=== PATIENT | male | born 2000 ===

== ENCOUNTER 2024-12-19 15:15 | Outpatient (AMB) | payer OTHER, SELFPAY ==
--- NOTE | 2024-12-19 15:16 | MHC.OFFVIS ---
Vital Signs 12/19/24 15:19 Height 5 ft 4.96 in Weight 146 lb 4 oz BMI 24.4 BP 102/68 Blood Pressure Location Rt brachial Position Sitting Pulse 75 Pulse Source Pulse Oximeter Pulse Oximetry (%) 97 Oxygen Delivery Method Room Air Intake Visit Reasons: severe asthma Allergies coconut Allergy (Mild, Verified 12/19/24 15:26) Hives Seasonal Allergies Allergy (Mild, Verified 12/19/24 15:26) Itching sertraline (From Zoloft) Allergy (Mild, Verified 12/19/24 15:26) Hives walnut Allergy (Mild, Verified 12/19/24 15:26) Unknown HPI HPI severe asthma: Details: Lonnie is a pleasant 24 year old male, never smoker, with underlying severe asthma, allergic rhinitis, eczema, mood disorder, PTSD and anxiety. 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 Today he is accompanied by his mother. He reports respiratory issues since he was an infant. He has been moderately controlled on Fasenra for the last three weeks receiving injections q8 weeks. Previous to Fasenra requiring multiple courses of prednisone. He receives Fasenra from [facility]. He does report ongoing cough occasionally productive with clear sputum otherwise dry. Denies wheezing, chest tightness or dyspnea. He also reports discontinuing all respiratory medications, previously using Advair 250mcg, albuterol MDI/neb. He endorses seasonal allergies using antihistamines PRN. Denies recent allergy testing. Prior CXR 2022 unremarkable. He reports mother with asthma, otherwise denies pertinent family history. [facility] Social History (Updated 12/19/24 @ 15:27 by Maria Victoria Alston [facility]) Patient Tobacco Use Status: Never used Tobacco Review of Systems Const Denies chills, Denies excessive sweating, Denies fever(s), Denies headache(s) and Denies night sweats Eyes Denies dry eyes, Denies irritation and Denies itchy eyes ENT Reports Normal hearing present, Denies headache(s), Denies nasal discharge, Denies post nasal drip and Denies sore throat Card Denies chest pain, Denies chest pain at rest, Denies chest pain with activity, Denies claudication, Denies leg edema, Denies dyspnea, Denies dyspnea on exertion, Denies orthopnea and Denies paroxysmal nocturnal dyspnea Resp Denies change in phlegm color, Denies chest congestion, Reports cough, Denies hemoptysis, Denies excessive phlegm production, Denies pain on inspiration, Denies pain with cough, Denies dyspnea, Denies dyspnea on exertion, Denies stridor and Denies wheezing Musc Denies myalgias Neuro Reports Normal hearing present and Denies headache(s) Endo Denies excessive sweating Gamaliel/Lymph Denies lymphadenopathy Aller/Immun Denies itchy eyes and Denies wheezing Physical Exam Vital Signs: Last Vital Signs Pulse 75 12/19/24 15:19 BP 102/68 12/19/24 15:19 Pulse Ox 97 12/19/24 15:19 Oxygen Delivery Method Room Air 12/19/24 15:19 BMI result Body Mass Index 24.4 Const General: cooperative, healthy appearing, comfortable, no acute distress, well developed and alert Orientation/consciousness: patient oriented x3 Limitations: no limitations HEENT Head: Yes normal to inspection, Yes normocephalic and Yes atraumatic Ears: hearing grossly normal bilaterally and external ears normal Eyes General: appearance normal, both eyes and all related structures Eyelids: Yes eyelids normal Sclerae: sclerae normal EOM: EOMs intact bilaterally Neck Neck: Yes normal visual inspection and Yes no lymphadenopathy Lymphatic: no lymphadenopathy noted Chest Chest palpation & inspection: normal inspection of the chest Resp Effort & Inspection: normal respiratory effort, able to speak in complete sentences, no audible wheezes, no cough, no stridor, not tachypneic, no tripod positioning and no use of accessory muscles Auscultation: diminished lung sounds Cardio Jugular venous distension: no JVD Rate: regular rate Rhythm: regular rhythm Skin Other: warm, dry General skin exam: no rashes or lesions noted Neuro General: patient oriented x3 Cranial nerves: Yes Normal hearing present Cognition (Neuro): normal cognition Gait exam (Neuro): Normal gait present Extrem General: Yes normal to inspection, Yes capillary refill normal, Yes no clubbing, cyanosis or edema and Yes no pedal edema Psych Appearance: grossly normal and well kempt Speech and movement: Normal speech and movement present and Clear speech present Affect: normal affect Attitude: cooperative Thought process: Normal thought process present Thought content: Normal thought content present Insight: Good insight present (Psych) Judgement: Good judgement present (Psych) Assessment & Plan Assessment & Plan (1) Asthma: Code(s): J45.909 - Unspecified asthma, uncomplicated Category: Medical (2) Environmental allergies: Code(s): Z91.09 - Other allergy status, other than to drugs and biological substances Category: Medical (3) Cough: Code(s): R05.9 - Cough, unspecified Category: Medical Plan The plan for asthma includes continuing Fasenra every eight weeks, with consideration for increasing frequency to every six weeks if symptoms worsen however patient has stopped taking Advair. He continues to report a cough likely related to poorly controlled asthma. Encouraged patient to restart Advair and monitor symptoms. The patient is advised to use albuterol as needed for acute symptoms and call if symptoms do not improve. Will send for PFT as well as RAST to assess for an allergic contribution. Will also obtain CXR for ongoing cough. All questions were answered and patient is in agreement of plan. Will follow up to review results or sooner if needed. Orders: Orders Immunoglobulin E Today Z91.09 - Other allergy status, other than to drugs and biological substances PFT pulmonary function test Today J45.909 - Unspecified asthma, uncomplicated XR chest 2V Today R05.9 - Cough, unspecified Resp Allergy Profile Region I Today Z91.09 - Other allergy status, other than to drugs and biological substances Complete Blood Count Auto Diff Today Z91.09 - Other allergy status, other than to drugs and biological substances Medications: New albuterol sulfate 2.5 mg (3 mL) inhalation Q4-6H PRN 90 mL 0RF shortness of breath or wheezing fluticasone propion-salmeterol 250-50 mcg/dose (Advair Diskus) 1 inh inhalation Q12H 60 ea 3RF Coding Level of Care Code New Pt Level 4 (23841) Diagnoses Asthma J45.909 Environmental allergies Z91.09 Cough R05.9
[2024-12-19 15:19] VITALS: BP 102/68; PULSE 75; O2SAT 97; BMI 24.4
== END 2024-12-19 16:04 | disposition home or self-care (01) ==
PROVIDERS: PCP Internal Medicine; Visit Provider Nurse Practitioner Family
DX: J45.909 Unspecified asthma, uncomplicated (principal); Z91.09 Other allergy status, other than to drugs and biological substances; R05.9 Cough, unspecified
CPT/HCPCS: 99204

== ENCOUNTER → 2024-12-19 15:15 | Outpatient (BNVA) | payer OTHER, SELFPAY | PROVIDERS: PCP Internal Medicine; Visit Provider Nurse Practitioner Family | DX: R05.3 Chronic cough (principal); J45.909 Unspecified asthma, uncomplicated; Z91.09 Other allergy status, other than to drugs and biological substances | CPT/HCPCS: 99202 ==